=== PATIENT | female | born 1945 | race Caucasian/White ===

== ENCOUNTER 2023-02-21 19:56 | Inpatient (IN) | payer BC, OTHER ==
[~2023-02-21] VITALS: Ht 134.6 cm; Wt 52.2 kg
[2023-02-21 20:12] VITALS: BP 163/92; PULSE 130; RESP 18; TEMP 97.4; O2SAT 97
[2023-02-21] MEDS ORDERED: NACL 0.9% 1,000 ML IV ONE (20:40)
[2023-02-21] MEDS ORDERED: KETOROLAC 30 MG/ML VIAL IVP ONE (20:45)
[2023-02-21] MEDS ORDERED: DILTIAZEM 25 MG/5 ML VIAL IVP ONE (22:20)
[2023-02-21 23:24] LABS: BASOPHILS % (AUTO) 0.4 % (0.0-2.0); EOSINOPHILS % (AUTO) 0.3 % (0.0-4.0); HEMATOCRIT 32.6 % (36-48); HEMOGLOBIN 10.9 g/dL (12.0-16.0); LYMPHOCYTES # (AUTO) 0.6 K/uL (2.5-16.5); LYMPHOCYTES % (AUTO) 8.1 % (20.5-51.1); MEAN CORPUSCULAR HEMOGLOBIN 26 pg (27-31); MEAN CORPUSCULAR HGB CONC 34 g/dL (33-37); MEAN CORPUSCULAR VOLUME 78.4 fL (80-94); MONOCYTES # (AUTO) 0.5 K/uL (0.8-1.0); MONOCYTES % (AUTO) 7.2 % (1.7-9.3); NEUTROPHILS # (AUTO) 6.1 K/uL (1.8-7.7); PLATELET COUNT (AUTO) 123 K/uL (140-450); RED BLOOD CELL COUNT(AUTO) 4.16 MIL/uL (4.20-5.40); WHITE BLOOD COUNT (AUTO) 7.3 K/uL (4.8-10.8)
[2023-02-21 23:28] LABS: INR 1.05 (0.8-1.2)
[2023-02-21 23:32] LABS: ALANINE AMINOTRANSFERASE 21 U/L (12-78); ALBUMIN 3.7 g/dL (3.4-5.0); ALKALINE PHOSPHATASE 88 U/L (50-136); ANION GAP 16.2 (8-16); ASPARTATE AMINOTRANSFERASE 36 U/L (15-37); CALCIUM 8.9 mg/dL (8.5-10.1); CARBON DIOXIDE 26.2 mmol/L (21-32); CHLORIDE 104 mmol/L (98-107); CREATININE 0.6 mg/dL (0.6-1.3); GLUCOSE 184 mg/dL (74-106); MAGNESIUM 1.6 mg/dL (1.8-2.4); POTASSIUM 3.4 mmol/L (3.5-5.1); SODIUM SERUM 143 mmol/L (136-145); TOTAL BILIRUBIN 1.2 mg/dL (0.0-1.0); TOTAL PROTEIN, SERUM 7.1 g/dL (6.4-8.2); UREA NITROGEN, BLOOD 17 mg/dL (7-18)
[2023-02-21] MEDS ORDERED: MAG SULF 2000 MG/WATER PREMIX 50 ML IV ONE (23:45)
[2023-02-22] VITALS (8 sets, daily range): BP systolic 124–175; BP diastolic 69–96; PULSE 72–151; RESP 16–20; TEMP 97.9–99.3; O2SAT 95–98
[2023-02-22] MEDS ORDERED: METOPROLOL 5 MG/5 ML VIAL IVP ONE (00:15)
[2023-02-22] MEDS ORDERED: KCL 20 MEQ IN 100 mL PREMIX 100 ML IV ONE (00:20)
[2023-02-22] MEDS ORDERED: METO25TE2 PO (01:53)
[2023-02-22] MEDS ORDERED: SACU1TAB PO (01:53)
[2023-02-22] MEDS ORDERED: POTA10TA70 PO (01:53)
[2023-02-22] MEDS: hydrALAZINE 20 MG/ML VIAL IVP PRN ×2 (03:08→12:41)
[2023-02-22] MEDS ORDERED: HYDROcodone/APAP 10/325 MG 1 TAB TAB PO PRN (07:45)
[2023-02-22] MEDS: MORPHINE SULFATE 4 MG/ML SYR IVP PRN ×2 (08:50→15:55)
[2023-02-22] MEDS ORDERED: guaiFENesin DM 200/20 MG-10 ML 10 ML UDC PO PRN (09:25)
[2023-02-22] MEDS ORDERED: ZOLPIDEM 5 MG TAB PO PRN (09:25)
[2023-02-22] MEDS ORDERED: ACETAMINOPHEN 325 MG TAB PO PRN (09:25)
[2023-02-22] MEDS ORDERED: POTASSIUM CHLORIDE 10 MEQ TABER PO PRN (09:25)
[2023-02-22] MEDS ORDERED: HYDROcodone/APAP 7.5/325 MG 1 TAB PO PRN (09:25)
[2023-02-22] MEDS ORDERED: ONDANSETRON 4 MG/2 ML VIAL IM/IVP PRN (09:25)
[2023-02-22] MEDS ORDERED: DOCUSATE SODIUM 100 MG GELCAP PO PRN (09:25)
[2023-02-22] MEDS ORDERED: ONDANSETRON 4 MG/2 ML VIAL IVP PRN (12:30)
[2023-02-22] MEDS: NACL 0.9% 1,000 ML IV SCH (12:37)
[2023-02-22 15:07] LABS: CHOL/HDL RATIO 2.5 (1-4.5); FREE T4 (FREE THYROXINE) 1.31 ng/dL (0.76-1.46); MAGNESIUM 1.7 mg/dL (1.8-2.4); PHOSPHORUS 3.3 mg/dL (2.5-4.9); THYROID STIMULATING HORMONE 0.82 uIU/mL (0.34-3.74)
[2023-02-22] MEDS ORDERED: DILTIAZEM 25 MG/5 ML VIAL IVP SCH (15:51)
[2023-02-22] MEDS: METOPROLOL SUCCINATE 50 MG TABER PO SCH (16:01)
[2023-02-22] MEDS ORDERED: MAG SULF 2000 MG/WATER PREMIX 50 ML IV ONE (19:05)
[2023-02-22] MEDS ORDERED: METOPROLOL 25 MG TAB PO PRN (22:30)
[2023-02-23] VITALS (7 sets, daily range): BP systolic 121–140; BP diastolic 63–101; PULSE 75–111; RESP 16–20; TEMP 97.1–98.9; O2SAT 91–99
[2023-02-23] MEDS: NACL 0.9% 1,000 ML IV SCH ×2 (02:28→21:39)
[2023-02-23 05:32] LABS: BILIRUBIN,URINE 1+ (NEGATIVE); BLOOD, URINE NEGATIVE (NEGATIVE); COLOR,URINE YELLOW (YELLOW); LEUKOCYTE ESTERASE ,URINE NEGATIVE (NEGATIVE); NITRITE, URINE NEGATIVE (NEGATIVE); PROTEIN,URINE 2+ (NEGATIVE); UGLUCOSE TRACE (NEGATIVE)
[2023-02-23 06:00] LABS: APPEARANCE,URINE SLIGHTLY HAZY (CLEAR)
[2023-02-23 06:01] LABS: BACTERIA,URINE OCCASSIONAL /HPF (None Seen); ICTOTEST NEGATIVE (NEGATIVE); RBC,URINE 0-5 /HPF (0-5); WBC,URINE 0-5 /HPF (0-5)
[2023-02-23 06:02] LABS: HYALINE CASTS, URINE 0-10 /LPF (None Seen); MUCUS,URINE 1+ /LPF (None Seen); SQUAMOUS EPITHELIAL CELL,UR 4-10 (MOD) /LPF (0-3 (FEW))
[2023-02-23 06:36] LABS: BASOPHILS % (AUTO) 0.1 % (0.0-2.0); HEMATOCRIT 31.9 % (36-48); HEMOGLOBIN 10.4 g/dL (12.0-16.0); LYMPHOCYTES # (AUTO) 0.7 K/uL (2.5-16.5); LYMPHOCYTES % (AUTO) 7.8 % (20.5-51.1); MEAN CORPUSCULAR HEMOGLOBIN 26 pg (27-31); MEAN CORPUSCULAR HGB CONC 33 g/dL (33-37); MEAN CORPUSCULAR VOLUME 79.5 fL (80-94); MONOCYTES # (AUTO) 1.1 K/uL (0.8-1.0); MONOCYTES % (AUTO) 11.8 % (1.7-9.3); NEUTROPHILS # (AUTO) 7.3 K/uL (1.8-7.7); NEUTROPHILS % (AUTO) 80.3 % (42.2-75.2); PLATELET COUNT (AUTO) 149 K/uL (140-450); RED BLOOD CELL COUNT(AUTO) 4.02 MIL/uL (4.20-5.40); RED CELL DISTRIBUTION WIDTH 16.8 % (11.6-13.7); WHITE BLOOD COUNT (AUTO) 9.1 K/uL (4.8-10.8)
[2023-02-23 06:59] LABS: ANION GAP 12.6 (8-16); CARBON DIOXIDE 26.1 mmol/L (21-32); CHLORIDE 108 mmol/L (98-107); CREATININE 0.9 mg/dL (0.6-1.3); GLUCOSE 197 mg/dL (74-106); POTASSIUM 4.7 mmol/L (3.5-5.1); SODIUM SERUM 142 mmol/L (136-145); UREA NITROGEN, BLOOD 22 mg/dL (7-18)
[2023-02-23] MEDS: METOPROLOL SUCCINATE 50 MG TABER PO SCH (08:37)
[2023-02-23] MEDS: PANTOPRAZOLE 40 MG TABEC PO SCH (08:37)
[2023-02-23] MEDS ORDERED: METOPROLOL SUCCINATE 50 MG TABER PO SCH (15:18)
[2023-02-23] MEDS: MORPHINE SULFATE 4 MG/ML SYR IVP PRN (15:45)
[2023-02-24] VITALS (10 sets, daily range): BP systolic 121–183; BP diastolic 66–110; PULSE 69–121; RESP 18–20; TEMP 96.6–97.9; O2SAT 92–99
[2023-02-24] MEDS: MORPHINE SULFATE 4 MG/ML SYR IVP PRN ×2 (01:14→19:24)
[2023-02-24 07:26] LABS: BASOPHILS % (AUTO) 0.2 % (0.0-2.0); EOSINOPHILS % (AUTO) 0.1 % (0.0-4.0); HEMATOCRIT 35.2 % (36-48); HEMOGLOBIN 11.3 g/dL (12.0-16.0); LYMPHOCYTES % (AUTO) 9.5 % (20.5-51.1); MEAN CORPUSCULAR HEMOGLOBIN 26 pg (27-31); MEAN CORPUSCULAR HGB CONC 32 g/dL (33-37); MEAN CORPUSCULAR VOLUME 80.7 fL (80-94); MONOCYTES % (AUTO) 9.1 % (1.7-9.3); NEUTROPHILS # (AUTO) 8.8 K/uL (1.8-7.7); NEUTROPHILS % (AUTO) 81.1 % (42.2-75.2); PLATELET COUNT (AUTO) 191 K/uL (140-450); RED BLOOD CELL COUNT(AUTO) 4.36 MIL/uL (4.20-5.40); RED CELL DISTRIBUTION WIDTH 17.5 % (11.6-13.7); WHITE BLOOD COUNT (AUTO) 10.8 K/uL (4.8-10.8)
[2023-02-24 07:28] LABS: ANION GAP 11.7 (8-16); CALCIUM 8.9 mg/dL (8.5-10.1); CARBON DIOXIDE 26.6 mmol/L (21-32); CHLORIDE 106 mmol/L (98-107); GLUCOSE 128 mg/dL (74-106); SODIUM SERUM 139 mmol/L (136-145); UREA NITROGEN, BLOOD 36 mg/dL (7-18)
[2023-02-24 07:30] LABS: POTASSIUM 5.3 mmol/L (3.5-5.1)
[2023-02-24] MEDS: PANTOPRAZOLE 40 MG TABEC PO SCH (08:14)
[2023-02-24] MEDS ORDERED: METOPROLOL SUCCINATE 50 MG TABER PO SCH (09:00)
[2023-02-24 09:07] LABS: T4 (THYROXINE) 8.5 ug/dL (4.5-12.0)
[2023-02-24] MEDS ORDERED: DIGOXIN 0.25 MG/ML AMP IV SCH ×2 (12:31→18:00)
[2023-02-24] MEDS: NACL 0.9% 1,000 ML IV SCH (12:32)
[2023-02-24] MEDS: METOPROLOL 50 MG TAB PO SCH ×2 (12:45→20:09)
[2023-02-24] MEDS: hydrALAZINE 20 MG/ML VIAL IVP PRN (14:54)
[2023-02-25] VITALS (8 sets, daily range): BP systolic 122–160; BP diastolic 75–89; PULSE 63–82; RESP 18–24; TEMP 97.6–98.2; O2SAT 94–99
[2023-02-25] MEDS ORDERED: DIGOXIN 0.25 MG/ML AMP IV SCH
[2023-02-25] MEDS: MORPHINE SULFATE 4 MG/ML SYR IVP PRN ×2 (02:32→12:03)
[2023-02-25] MEDS: NACL 0.9% 1,000 ML IV SCH (04:22)
[2023-02-25] MEDS: METOPROLOL 50 MG TAB PO SCH (04:22)
[2023-02-25 06:08] LABS: HEMOGLOBIN A1C 5.3 % (4.8-5.6)
[2023-02-25 06:20] LABS: BASOPHILS % (AUTO) 0.3 % (0.0-2.0); EOSINOPHILS % (AUTO) 0.2 % (0.0-4.0); HEMATOCRIT 32.9 % (36-48); HEMOGLOBIN 10.7 g/dL (12.0-16.0); LYMPHOCYTES # (AUTO) 0.5 K/uL (2.5-16.5); LYMPHOCYTES % (AUTO) 5.6 % (20.5-51.1); MEAN CORPUSCULAR HEMOGLOBIN 26 pg (27-31); MEAN CORPUSCULAR HGB CONC 33 g/dL (33-37); MEAN CORPUSCULAR VOLUME 79.6 fL (80-94); MONOCYTES # (AUTO) 0.6 K/uL (0.8-1.0); MONOCYTES % (AUTO) 6.2 % (1.7-9.3); NEUTROPHILS # (AUTO) 7.8 K/uL (1.8-7.7); NEUTROPHILS % (AUTO) 87.7 % (42.2-75.2); PLATELET COUNT (AUTO) 146 K/uL (140-450); RED BLOOD CELL COUNT(AUTO) 4.13 MIL/uL (4.20-5.40); RED CELL DISTRIBUTION WIDTH 16.5 % (11.6-13.7); WHITE BLOOD COUNT (AUTO) 8.9 K/uL (4.8-10.8)
[2023-02-25 06:47] LABS: ANION GAP 12.7 (8-16); CALCIUM 8.4 mg/dL (8.5-10.1); CARBON DIOXIDE 27.3 mmol/L (21-32); CHLORIDE 107 mmol/L (98-107); CREATININE 0.6 mg/dL (0.6-1.3); GLUCOSE 111 mg/dL (74-106); SODIUM SERUM 143 mmol/L (136-145); UREA NITROGEN, BLOOD 20 mg/dL (7-18)
[2023-02-25] MEDS ORDERED: ALBUTEROL SULFATE/IPRATROPIU 3 ML SOL IH PRN (08:05)
[2023-02-25] MEDS ORDERED: METO25TA PO (08:20)
[2023-02-25] MEDS ORDERED: TRAM50TA3 PO (08:20)
[2023-02-25] MEDS ORDERED: ASPI-1856 PO (08:20)
[2023-02-25] MEDS ORDERED: LEVO-481 PO (08:22)
[2023-02-25] MEDS ORDERED: ALBU0.0912 IH (08:22)
[2023-02-25] MEDS ORDERED: ECOTRIN 81 MG TABEC PO SCH (09:00)
[2023-02-25] MEDS: PANTOPRAZOLE 40 MG TABEC PO SCH (09:09)
[2023-02-25] MEDS: hydrALAZINE 20 MG/ML VIAL IVP PRN (11:23)
== END 2023-02-25 13:00 | disposition home or self-care (01) | DRG 871 ==
LOC: MED 19:56 → MTU 02-22 00:33
PROVIDERS: ADMIT Family Medicine; ATTEND Family Medicine
PROC: 2W3LX1Z Immobilization of Right Lower Extremity using Splint (ICD-10-PCS; principal; 2023-02-21)
DX: A41.9 Sepsis, unspecified organism (principal); J18.9 Pneumonia, unspecified organism; J69.0 Pneumonitis due to inhalation of food and vomit; I48.20 Chronic atrial fibrillation, unspecified; D68.9 Coagulation defect, unspecified; S82.841A Displaced bimalleolar fracture of right lower leg, initial encounter for closed fracture; I10 Essential (primary) hypertension; W01.0XXA Fall on same level from slipping, tripping and stumbling without subsequent striking against object, initial encounter; I48.91 Unspecified atrial fibrillation; D63.8 Anemia in other chronic diseases classified elsewhere; Z89.612 Acquired absence of left leg above knee; Z79.01 Long term (current) use of anticoagulants; Z79.899 Other long term (current) drug therapy; Y93.89 Activity, other specified; Y92.89 Other specified places as the place of occurrence of the external cause; Y99.8 Other external cause status
CPT/HCPCS: 36415; 70450; 71045; 72125; 73590; 73610; 73630; 80048; 80053; 81001; 82150; 83036; 83690; 83735; 83880; 84100; 84436; 84439; 84443; 84479; 84484; 85025; 85610; 86886; 86900; 86901; 87081; 93005; 94640; 96361; 96365; 96366; 96375; 99291; J0360; J0696; J1160; J1885; J2270; J2405; J3475; J3480; J3490; J7060; Q0092

== ENCOUNTER 2023-03-03 15:02 | Inpatient (IN) | payer BC, OTHER ==
[~2023-03-03] VITALS: Ht 139.7 cm; Wt 76.2 kg
[~2023-03-03 15:02] MED LIST: ALBU0.0912 IH; ASPI-1856 PO; LEVO-481 PO; METO25TA PO; POTA10TA70 PO; SACU1TAB PO
[2023-03-03 15:42] VITALS: BP 192/115; PULSE 166; RESP 34; TEMP 101.5; O2SAT 96
[2023-03-03] MEDS ORDERED: NACL 0.9% 500 ML IV ONE (16:00)
[2023-03-03] MEDS ORDERED: METOPROLOL 5 MG/5 ML VIAL IVP ONE (16:05)
[2023-03-03] MEDS ORDERED: ACETAMINOPHEN EXTRA STRENGTH 500 MG TAB PO ONE (16:05)
[2023-03-03 16:19] LABS: BASOPHILS % (AUTO) 0.1 % (0.0-2.0); HEMATOCRIT 35.4 % (36-48); HEMOGLOBIN 11.6 g/dL (12.0-16.0); LYMPHOCYTES # (AUTO) 0.8 K/uL (2.5-16.5); LYMPHOCYTES % (AUTO) 6.3 % (20.5-51.1); MEAN CORPUSCULAR HEMOGLOBIN 26 pg (27-31); MEAN CORPUSCULAR HGB CONC 33 g/dL (33-37); MEAN CORPUSCULAR VOLUME 77.5 fL (80-94); MONOCYTES # (AUTO) 1.1 K/uL (0.8-1.0); MONOCYTES % (AUTO) 8.9 % (1.7-9.3); NEUTROPHILS # (AUTO) 10.3 K/uL (1.8-7.7); NEUTROPHILS % (AUTO) 84.7 % (42.2-75.2); PLATELET COUNT (AUTO) 169 K/uL (140-450); RED BLOOD CELL COUNT(AUTO) 4.57 MIL/uL (4.20-5.40); WHITE BLOOD COUNT (AUTO) 12.2 K/uL (4.8-10.8)
[2023-03-03 16:34] LABS: LACTIC ACID 1.2 mmol/L (0.4-2.0)
[2023-03-03 16:38] LABS: ALANINE AMINOTRANSFERASE 21 U/L (12-78); ALBUMIN 3.5 g/dL (3.4-5.0); ALKALINE PHOSPHATASE 80 U/L (50-136); ANION GAP 14.9 (8-16); ASPARTATE AMINOTRANSFERASE 36 U/L (15-37); CALCIUM 8.9 mg/dL (8.5-10.1); CARBON DIOXIDE 29.9 mmol/L (21-32); CHLORIDE 99 mmol/L (98-107); CREATININE 0.6 mg/dL (0.6-1.3); GLUCOSE 128 mg/dL (74-106); INR 1.09 (0.8-1.2); LIPASE 25 U/L (16-77); MAGNESIUM 1.6 mg/dL (1.8-2.4); PARTIAL THROMBOPLASTIN TIME 26.3 secs (22-35.6); PHOSPHORUS 2.5 mg/dL (2.5-4.9); POTASSIUM 3.8 mmol/L (3.5-5.1); PROTHROMBIN TIME 11.4 secs (10.8-13.4); SODIUM SERUM 140 mmol/L (136-145); TOTAL BILIRUBIN 0.8 mg/dL (0.0-1.0); TOTAL PROTEIN, SERUM 7.2 g/dL (6.4-8.2); UREA NITROGEN, BLOOD 15 mg/dL (7-18)
[2023-03-03] MEDS ORDERED: AMPICILLIN/SULBACTAM 3 GM in NACL 0.9% 100 ML IV ONE (17:20)
[2023-03-03] MEDS ORDERED: AMPICILLIN/SULBACTAM 3 GM VIAL ONE (17:24)
[2023-03-03 17:50] LABS: FLU A ANTIGEN negative (NEGATIVE); FLU B ANTIGEN NEGATIVE (NEGATIVE)
[2023-03-03] MEDS ORDERED: ONDANSETRON 4 MG/2 ML VIAL IVP PRN (19:50)
[2023-03-03 21:54] VITALS: PULSE 104; RESP 32; O2SAT 100
[2023-03-03] MEDS: ALBUTEROL 0.083% 2.5 MG/3 ML NEBU INH PRN (21:54)
[2023-03-03] MEDS: APIXABAN 2.5 MG TAB PO SCH (22:13)
[2023-03-03] MEDS: METOPROLOL 50 MG TAB PO SCH (22:13)
[2023-03-03] MEDS: lisinopriL 20 MG TAB PO SCH (22:14)
[2023-03-03] MEDS: SPIRONOLACTONE 25 MG TAB PO SCH (22:22)
[2023-03-03 22:39] VITALS: O2SAT 100
[2023-03-04] VITALS (11 sets, daily range): BP systolic 155–185; BP diastolic 79–96; PULSE 71–120; RESP 18–29; TEMP 99.3–99.7; O2SAT 92–100
[2023-03-04] MEDS: HYDROcodone/APAP 5/325 MG 1 TAB TAB PO PRN ×2 (04:24→13:12)
[2023-03-04] MEDS: ALBUTEROL 0.083% 2.5 MG/3 ML NEBU INH PRN (04:24)
[2023-03-04 06:41] LABS: BASOPHILS % (AUTO) 0.2 % (0.0-2.0); EOSINOPHILS % (AUTO) 0.2 % (0.0-4.0); HEMATOCRIT 32.5 % (36-48); HEMOGLOBIN 10.7 g/dL (12.0-16.0); LYMPHOCYTES # (AUTO) 0.7 K/uL (2.5-16.5); LYMPHOCYTES % (AUTO) 8.8 % (20.5-51.1); MEAN CORPUSCULAR HEMOGLOBIN 26 pg (27-31); MEAN CORPUSCULAR HGB CONC 33 g/dL (33-37); MEAN CORPUSCULAR VOLUME 77.3 fL (80-94); MONOCYTES # (AUTO) 0.7 K/uL (0.8-1.0); MONOCYTES % (AUTO) 9.4 % (1.7-9.3); NEUTROPHILS # (AUTO) 6.2 K/uL (1.8-7.7); NEUTROPHILS % (AUTO) 81.4 % (42.2-75.2); PLATELET COUNT (AUTO) 139 K/uL (140-450); RED CELL DISTRIBUTION WIDTH 16.6 % (11.6-13.7); WHITE BLOOD COUNT (AUTO) 7.6 K/uL (4.8-10.8)
[2023-03-04 06:54] LABS: ANION GAP 11.6 (8-16); CALCIUM 8.3 mg/dL (8.5-10.1); CARBON DIOXIDE 31.4 mmol/L (21-32); CHLORIDE 103 mmol/L (98-107); CREATININE 0.6 mg/dL (0.6-1.3); GLUCOSE 93 mg/dL (74-106); SODIUM SERUM 143 mmol/L (136-145); UREA NITROGEN, BLOOD 12 mg/dL (7-18)
[2023-03-04] MEDS ORDERED: POTASSIUM CHLORIDE 10 MEQ TABER PO SCH (09:00)
[2023-03-04] MEDS: SPIRONOLACTONE 25 MG TAB PO SCH ×2 (09:29→21:08)
[2023-03-04] MEDS: FUROSEMIDE 40 MG TAB PO SCH (09:30)
[2023-03-04] MEDS: lisinopriL 20 MG TAB PO SCH ×2 (09:30→21:10)
[2023-03-04] MEDS: METOPROLOL 50 MG TAB PO SCH ×2 (09:30→21:09)
[2023-03-04] MEDS: APIXABAN 2.5 MG TAB PO SCH ×2 (09:39→21:07)
[2023-03-04] MEDS: MORPHINE SULFATE 2 MG/ML SYR IVP PRN (13:54)
[2023-03-04 19:31] LABS: APPEARANCE,URINE CLEAR (CLEAR); BILIRUBIN,URINE NEGATIVE (NEGATIVE); BLOOD, URINE NEGATIVE (NEGATIVE); COLOR,URINE YELLOW (YELLOW); LEUKOCYTE ESTERASE ,URINE TRACE (NEGATIVE); NITRITE, URINE NEGATIVE (NEGATIVE); PROTEIN,URINE 2+ (NEGATIVE); UGLUCOSE NEGATIVE (NEGATIVE); UROBILINOGEN,URINE 0.2 EU/dL (0.2 - 1)
[2023-03-04 19:42] LABS: BACTERIA,URINE 10-30 (MOD) /HPF (None Seen); RBC,URINE 0-5 /HPF (0-5); SQUAMOUS EPITHELIAL CELL,UR 0-3 (FEW) /LPF (0-3 (FEW)); YEAST,URINE Few /HPF (None Seen)
[2023-03-04 19:43] LABS: AMPHETAMINE, URINE NEGATIVE ng/ml (NEG <=1000); BARBITURATE, URINE NEGATIVE ng/ml (NEG <=200); BENZODIAZEPINE, URINE NEGATIVE ng/mL (NEG <=200); CANNABINOID, URINE NEGATIVE ng/mL (NEG <=50); COCAINE, URINE NEGATIVE ng/mL (NEG <=300); OPIATE, URINE POSITIVE ng/mL (NEG <=2000); PHENCYCLIDINE SCREEN,URINE NEGATIVE ng/mL (NEG <=25)
[2023-03-05] VITALS (17 sets, daily range): BP systolic 121–207; BP diastolic 47–126; PULSE 68–110; RESP 12–29; TEMP 96.6–99.5; O2SAT 95–100
[2023-03-05 06:59] LABS: BASOPHILS % (AUTO) 0.1 % (0.0-2.0); EOSINOPHILS % (AUTO) 0.5 % (0.0-4.0); HEMOGLOBIN 10.8 g/dL (12.0-16.0); LYMPHOCYTES # (AUTO) 0.9 K/uL (2.5-16.5); LYMPHOCYTES % (AUTO) 14.1 % (20.5-51.1); MEAN CORPUSCULAR HEMOGLOBIN 25 pg (27-31); MEAN CORPUSCULAR HGB CONC 33 g/dL (33-37); MEAN CORPUSCULAR VOLUME 77.5 fL (80-94); MONOCYTES # (AUTO) 0.7 K/uL (0.8-1.0); MONOCYTES % (AUTO) 11.6 % (1.7-9.3); NEUTROPHILS # (AUTO) 4.6 K/uL (1.8-7.7); NEUTROPHILS % (AUTO) 73.7 % (42.2-75.2); PLATELET COUNT (AUTO) 142 K/uL (140-450); RED BLOOD CELL COUNT(AUTO) 4.26 MIL/uL (4.20-5.40); RED CELL DISTRIBUTION WIDTH 16.8 % (11.6-13.7); WHITE BLOOD COUNT (AUTO) 6.3 K/uL (4.8-10.8)
[2023-03-05 07:12] LABS: ANION GAP 6.5 (8-16); CALCIUM 8.6 mg/dL (8.5-10.1); CARBON DIOXIDE 35.2 mmol/L (21-32); CHLORIDE 102 mmol/L (98-107); CREATININE 0.5 mg/dL (0.6-1.3); GLUCOSE 82 mg/dL (74-106); POTASSIUM 3.7 mmol/L (3.5-5.1); SODIUM SERUM 140 mmol/L (136-145); UREA NITROGEN, BLOOD 13 mg/dL (7-18)
[2023-03-05] MEDS: ALBUTEROL 0.083% 2.5 MG/3 ML NEBU INH PRN (08:43)
[2023-03-05] MEDS ORDERED: METOPROLOL 5 MG/5 ML VIAL ONE (09:10)
[2023-03-05] MEDS ORDERED: METOPROLOL 5 MG/5 ML VIAL IV SCH (09:10)
[2023-03-05] MEDS: APIXABAN 2.5 MG TAB PO SCH ×2 (09:17→21:02)
[2023-03-05] MEDS: SPIRONOLACTONE 25 MG TAB PO SCH ×2 (09:18→20:27)
[2023-03-05] MEDS: lisinopriL 20 MG TAB PO SCH ×2 (09:18→20:27)
[2023-03-05] MEDS: FUROSEMIDE 40 MG TAB PO SCH (09:19)
[2023-03-05] MEDS ORDERED: AMIODARONE 150 MG in DEXTROSE 5% 100 ML IV SCH (09:20)
[2023-03-05] MEDS: METOPROLOL 50 MG TAB PO SCH ×3 (09:25→20:28)
[2023-03-05] MEDS ORDERED: AMIODARONE 450 MG in DEXTROSE 5% 250 ML IV SCH (09:30)
[2023-03-05] MEDS ORDERED: remdesivir COMMUNICATION ORDER 1 EA MISC MC PRN (15:05)
[2023-03-05] MEDS ORDERED: remdesivir CLINICAL MONITORING 1 EA MISC MC PRN (15:25)
[2023-03-05 15:32] LABS: ALBUMIN 2.9 g/dL (3.4-5.0); BILIRUBIN,DIRECT 0.2 mg/dL (0.0-0.3); TOTAL BILIRUBIN 0.7 mg/dL (0.0-1.0); TOTAL PROTEIN, SERUM 6.2 g/dL (6.4-8.2)
[2023-03-05] MEDS ORDERED: REMDESIVIR. 200 MG in NACL 0.9% 100 ML IV SCH (16:00)
[2023-03-05] MEDS ORDERED: IPRATROPIUM 0.02% 0.5 MG/2.5 ML NEBU INH PRN (18:20)
[2023-03-05] MEDS ORDERED: LEVALBUTEROL 1.25 MG/0.5 ML NEBU INH PRN (18:20)
[2023-03-05] MEDS ORDERED: LEVOFLOXACIN 750 MG/D5W PREMIX 150 ML IV SCH (22:15)
[2023-03-05] MEDS: LEVOFLOXACIN 750 MG/D5W PREMIX 150 ML IV SCH (22:56)
[2023-03-06] VITALS (18 sets, daily range): BP systolic 127–165; BP diastolic 67–107; PULSE 70–95; RESP 17–28; TEMP 97.2–98.4; O2SAT 98–100
[2023-03-06] MEDS: METOPROLOL 50 MG TAB PO SCH ×3 (04:15→21:10)
[2023-03-06 05:54] LABS: BASOPHILS % (AUTO) 0.1 % (0.0-2.0); EOSINOPHILS % (AUTO) 0.5 % (0.0-4.0); HEMOGLOBIN 11.6 g/dL (12.0-16.0); LYMPHOCYTES # (AUTO) 0.6 K/uL (2.5-16.5); LYMPHOCYTES % (AUTO) 10.8 % (20.5-51.1); MEAN CORPUSCULAR HEMOGLOBIN 25 pg (27-31); MEAN CORPUSCULAR HGB CONC 32 g/dL (33-37); MONOCYTES # (AUTO) 0.6 K/uL (0.8-1.0); MONOCYTES % (AUTO) 9.7 % (1.7-9.3); NEUTROPHILS # (AUTO) 4.6 K/uL (1.8-7.7); NEUTROPHILS % (AUTO) 78.9 % (42.2-75.2); PLATELET COUNT (AUTO) 126 K/uL (140-450); RED BLOOD CELL COUNT(AUTO) 4.62 MIL/uL (4.20-5.40); RED CELL DISTRIBUTION WIDTH 17.1 % (11.6-13.7); WHITE BLOOD COUNT (AUTO) 5.8 K/uL (4.8-10.8)
[2023-03-06 06:15] LABS: ALANINE AMINOTRANSFERASE 18 U/L (12-78); ALBUMIN 2.6 g/dL (3.4-5.0); ALKALINE PHOSPHATASE 65 U/L (50-136); ANION GAP 7.9 (8-16); ASPARTATE AMINOTRANSFERASE 33 U/L (15-37); CALCIUM 8.3 mg/dL (8.5-10.1); CARBON DIOXIDE 33.9 mmol/L (21-32); CHLORIDE 100 mmol/L (98-107); CREATININE 0.4 mg/dL (0.6-1.3); GLUCOSE 90 mg/dL (74-106); POTASSIUM 3.8 mmol/L (3.5-5.1); SODIUM SERUM 138 mmol/L (136-145); TOTAL BILIRUBIN 0.6 mg/dL (0.0-1.0); TOTAL PROTEIN, SERUM 6.1 g/dL (6.4-8.2); UREA NITROGEN, BLOOD 11 mg/dL (7-18)
[2023-03-06 07:39] LABS: ALBUMIN 2.5 g/dL (3.4-5.0); BILIRUBIN,DIRECT 0.1 mg/dL (0.0-0.3); TOTAL BILIRUBIN 0.6 mg/dL (0.0-1.0); TOTAL PROTEIN, SERUM 6.1 g/dL (6.4-8.2)
[2023-03-06] MEDS: lisinopriL 20 MG TAB PO SCH ×2 (08:08→21:09)
[2023-03-06] MEDS: SPIRONOLACTONE 25 MG TAB PO SCH ×2 (08:08→21:07)
[2023-03-06] MEDS: FUROSEMIDE 40 MG TAB PO SCH (08:08)
[2023-03-06] MEDS: APIXABAN 2.5 MG TAB PO SCH ×2 (08:10→21:17)
[2023-03-06] MEDS: DEXAMETHASONE 10 MG/ML VIAL IVP SCH (08:11)
[2023-03-06] MEDS: REMDESIVIR. 100 MG in NACL 0.9% 100 ML IV SCH (15:25)
[2023-03-07] VITALS (11 sets, daily range): BP systolic 128–174; BP diastolic 72–125; PULSE 63–93; RESP 16–20; TEMP 97–98.2; O2SAT 93–96
[2023-03-07] MEDS: METOPROLOL 50 MG TAB PO SCH ×3 (05:03→21:58)
[2023-03-07 06:46] LABS: BASOPHILS % (AUTO) 0.1 % (0.0-2.0); EOSINOPHILS % (AUTO) 0.1 % (0.0-4.0); HEMATOCRIT 35.4 % (36-48); HEMOGLOBIN 11.6 g/dL (12.0-16.0); LYMPHOCYTES # (AUTO) 0.6 K/uL (2.5-16.5); LYMPHOCYTES % (AUTO) 12.2 % (20.5-51.1); MEAN CORPUSCULAR HEMOGLOBIN 25 pg (27-31); MEAN CORPUSCULAR HGB CONC 33 g/dL (33-37); MEAN CORPUSCULAR VOLUME 76.5 fL (80-94); MONOCYTES # (AUTO) 0.7 K/uL (0.8-1.0); MONOCYTES % (AUTO) 13.9 % (1.7-9.3); NEUTROPHILS # (AUTO) 3.7 K/uL (1.8-7.7); NEUTROPHILS % (AUTO) 73.7 % (42.2-75.2); PLATELET COUNT (AUTO) 251 K/uL (140-450); RED BLOOD CELL COUNT(AUTO) 4.63 MIL/uL (4.20-5.40); RED CELL DISTRIBUTION WIDTH 16.4 % (11.6-13.7)
[2023-03-07 07:10] LABS: ALANINE AMINOTRANSFERASE 19 U/L (12-78); ALBUMIN 2.5 g/dL (3.4-5.0); ALKALINE PHOSPHATASE 68 U/L (50-136); ANION GAP 8.5 (8-16); ASPARTATE AMINOTRANSFERASE 24 U/L (15-37); CALCIUM 8.5 mg/dL (8.5-10.1); CARBON DIOXIDE 34.4 mmol/L (21-32); CHLORIDE 98 mmol/L (98-107); CREATININE 0.5 mg/dL (0.6-1.3); GLUCOSE 103 mg/dL (74-106); POTASSIUM 3.9 mmol/L (3.5-5.1); SODIUM SERUM 137 mmol/L (136-145); TOTAL BILIRUBIN 0.6 mg/dL (0.0-1.0); UREA NITROGEN, BLOOD 15 mg/dL (7-18)
[2023-03-07] MEDS: POLYETHYLENE GLYCOL 17 GM/PKT PO SCH (08:58)
[2023-03-07] MEDS: DEXAMETHASONE 10 MG/ML VIAL IVP SCH (08:59)
[2023-03-07] MEDS: FLUCONAZOLE 100 MG TAB PO SCH (09:00)
[2023-03-07] MEDS: APIXABAN 2.5 MG TAB PO SCH ×2 (09:03→22:00)
[2023-03-07] MEDS: lisinopriL 20 MG TAB PO SCH ×2 (09:04→21:58)
[2023-03-07] MEDS: DOCUSATE SODIUM 100 MG GELCAP PO SCH ×2 (09:05→21:58)
[2023-03-07] MEDS: FUROSEMIDE 40 MG TAB PO SCH (09:05)
[2023-03-07] MEDS: SPIRONOLACTONE 25 MG TAB PO SCH ×2 (09:06→21:59)
[2023-03-07] MEDS ORDERED: SODIUM PHOSPHATE 118 ML ENEM RC SCH (14:00)
[2023-03-07] MEDS ORDERED: DIGOXIN 0.25 MG/ML AMP IV SCH ×2 (16:00→22:00)
[2023-03-07] MEDS: REMDESIVIR. 100 MG in NACL 0.9% 100 ML IV SCH (18:08)
[2023-03-07] MEDS: LEVOFLOXACIN 750 MG/D5W PREMIX 150 ML IV SCH (21:59)
[2023-03-08] VITALS (8 sets, daily range): BP systolic 102–181; BP diastolic 61–86; PULSE 55–68; RESP 17–19; TEMP 97.1–98; O2SAT 94–100
[2023-03-08] MEDS: MORPHINE SULFATE 2 MG/ML SYR IVP PRN (02:53)
[2023-03-08] MEDS ORDERED: DIGOXIN 0.25 MG/ML AMP IV SCH (04:00)
[2023-03-08 06:31] LABS: BASOPHILS % (AUTO) 0.1 % (0.0-2.0); HEMATOCRIT 36.5 % (36-48); LYMPHOCYTES # (AUTO) 0.7 K/uL (2.5-16.5); LYMPHOCYTES % (AUTO) 11.1 % (20.5-51.1); MEAN CORPUSCULAR HEMOGLOBIN 25 pg (27-31); MEAN CORPUSCULAR HGB CONC 33 g/dL (33-37); MEAN CORPUSCULAR VOLUME 76.1 fL (80-94); MONOCYTES # (AUTO) 0.6 K/uL (0.8-1.0); MONOCYTES % (AUTO) 9.7 % (1.7-9.3); NEUTROPHILS # (AUTO) 5.2 K/uL (1.8-7.7); NEUTROPHILS % (AUTO) 79.1 % (42.2-75.2); PLATELET COUNT (AUTO) 264 K/uL (140-450); RED CELL DISTRIBUTION WIDTH 16.5 % (11.6-13.7); WHITE BLOOD COUNT (AUTO) 6.6 K/uL (4.8-10.8)
[2023-03-08 06:47] LABS: ALANINE AMINOTRANSFERASE 20 U/L (12-78); ALBUMIN 2.7 g/dL (3.4-5.0); ALKALINE PHOSPHATASE 74 U/L (50-136); ASPARTATE AMINOTRANSFERASE 26 U/L (15-37); CALCIUM 8.5 mg/dL (8.5-10.1); CARBON DIOXIDE 31.9 mmol/L (21-32); CHLORIDE 97 mmol/L (98-107); CREATININE 0.6 mg/dL (0.6-1.3); GLUCOSE 112 mg/dL (74-106); POTASSIUM 3.9 mmol/L (3.5-5.1); SODIUM SERUM 136 mmol/L (136-145); TOTAL BILIRUBIN 0.8 mg/dL (0.0-1.0); TOTAL PROTEIN, SERUM 6.3 g/dL (6.4-8.2); UREA NITROGEN, BLOOD 17 mg/dL (7-18)
[2023-03-08] MEDS: lisinopriL 20 MG TAB PO SCH ×2 (11:30→20:42)
[2023-03-08] MEDS: FUROSEMIDE 40 MG TAB PO SCH (11:30)
[2023-03-08] MEDS: FLUCONAZOLE 100 MG TAB PO SCH (11:30)
[2023-03-08] MEDS: DEXAMETHASONE 10 MG/ML VIAL IVP SCH (11:31)
[2023-03-08] MEDS: METOPROLOL 50 MG TAB PO SCH ×2 (11:31→20:41)
[2023-03-08] MEDS: SPIRONOLACTONE 25 MG TAB PO SCH ×2 (11:31→20:41)
[2023-03-08] MEDS: DOCUSATE SODIUM 100 MG GELCAP PO SCH ×2 (11:32→20:41)
[2023-03-08] MEDS: POLYETHYLENE GLYCOL 17 GM/PKT PO SCH (11:32)
[2023-03-08] MEDS: APIXABAN 2.5 MG TAB PO SCH ×2 (11:42→20:43)
[2023-03-08] MEDS: REMDESIVIR. 100 MG in NACL 0.9% 100 ML IV SCH (16:59)
[2023-03-09] VITALS (9 sets, daily range): BP systolic 113–145; BP diastolic 64–80; PULSE 51–96; RESP 18–20; TEMP 96.9–98.6; O2SAT 96–99
[2023-03-09] MEDS: HYDROcodone/APAP 5/325 MG 1 TAB TAB PO PRN ×2 (02:02→23:46)
[2023-03-09 07:02] LABS: BASOPHILS % (AUTO) 0.1 % (0.0-2.0); HEMOGLOBIN 11.6 g/dL (12.0-16.0); LYMPHOCYTES # (AUTO) 0.5 K/uL (2.5-16.5); LYMPHOCYTES % (AUTO) 9.8 % (20.5-51.1); MEAN CORPUSCULAR HEMOGLOBIN 25 pg (27-31); MEAN CORPUSCULAR HGB CONC 33 g/dL (33-37); MEAN CORPUSCULAR VOLUME 76.3 fL (80-94); MONOCYTES # (AUTO) 0.3 K/uL (0.8-1.0); MONOCYTES % (AUTO) 7.1 % (1.7-9.3); NEUTROPHILS # (AUTO) 3.9 K/uL (1.8-7.7); PLATELET COUNT (AUTO) 270 K/uL (140-450); RED BLOOD CELL COUNT(AUTO) 4.59 MIL/uL (4.20-5.40); RED CELL DISTRIBUTION WIDTH 16.5 % (11.6-13.7); WHITE BLOOD COUNT (AUTO) 4.7 K/uL (4.8-10.8)
[2023-03-09 07:19] LABS: ALANINE AMINOTRANSFERASE 17 U/L (12-78); ALBUMIN 2.7 g/dL (3.4-5.0); ALKALINE PHOSPHATASE 71 U/L (50-136); ANION GAP 7.2 (8-16); ASPARTATE AMINOTRANSFERASE 22 U/L (15-37); CALCIUM 8.5 mg/dL (8.5-10.1); CARBON DIOXIDE 33.9 mmol/L (21-32); CHLORIDE 97 mmol/L (98-107); CREATININE 0.7 mg/dL (0.6-1.3); GLUCOSE 126 mg/dL (74-106); POTASSIUM 4.1 mmol/L (3.5-5.1); SODIUM SERUM 134 mmol/L (136-145); TOTAL BILIRUBIN 0.7 mg/dL (0.0-1.0); UREA NITROGEN, BLOOD 19 mg/dL (7-18)
[2023-03-09] MEDS: SPIRONOLACTONE 25 MG TAB PO SCH ×2 (09:00→21:56)
[2023-03-09] MEDS: METOPROLOL 50 MG TAB PO SCH ×2 (09:00→21:56)
[2023-03-09] MEDS: FUROSEMIDE 40 MG TAB PO SCH (10:10)
[2023-03-09] MEDS: DEXAMETHASONE 10 MG/ML VIAL IVP SCH (10:10)
[2023-03-09] MEDS: FLUCONAZOLE 100 MG TAB PO SCH (10:11)
[2023-03-09] MEDS: DOCUSATE SODIUM 100 MG GELCAP PO SCH ×2 (10:11→20:44)
[2023-03-09] MEDS: lisinopriL 20 MG TAB PO SCH ×2 (10:11→21:57)
[2023-03-09] MEDS: APIXABAN 2.5 MG TAB PO SCH ×2 (10:17→20:52)
[2023-03-09] MEDS: POLYETHYLENE GLYCOL 17 GM/PKT PO SCH (10:18)
[2023-03-09] MEDS: REMDESIVIR. 100 MG in NACL 0.9% 100 ML IV SCH (17:15)
[2023-03-09] MEDS: LEVOFLOXACIN 750 MG/D5W PREMIX 150 ML IV SCH (21:58)
[2023-03-10] VITALS (12 sets, daily range): BP systolic 131–162; BP diastolic 70–88; PULSE 55–89; RESP 15–20; TEMP 97.2–98.6; O2SAT 93–100
[2023-03-10 06:28] LABS: HEMATOCRIT 38.8 % (36-48); HEMOGLOBIN 12.8 g/dL (12.0-16.0); LYMPHOCYTES # (AUTO) 0.4 K/uL (2.5-16.5); LYMPHOCYTES % (AUTO) 5.8 % (20.5-51.1); MEAN CORPUSCULAR HEMOGLOBIN 25 pg (27-31); MEAN CORPUSCULAR HGB CONC 33 g/dL (33-37); MEAN CORPUSCULAR VOLUME 76.2 fL (80-94); MONOCYTES # (AUTO) 0.6 K/uL (0.8-1.0); MONOCYTES % (AUTO) 8.2 % (1.7-9.3); NEUTROPHILS # (AUTO) 6.5 K/uL (1.8-7.7); PLATELET COUNT (AUTO) 307 K/uL (140-450); RED BLOOD CELL COUNT(AUTO) 5.09 MIL/uL (4.20-5.40); RED CELL DISTRIBUTION WIDTH 16.6 % (11.6-13.7); WHITE BLOOD COUNT (AUTO) 7.5 K/uL (4.8-10.8)
[2023-03-10 06:51] LABS: ALANINE AMINOTRANSFERASE 19 U/L (12-78); ALKALINE PHOSPHATASE 84 U/L (50-136); ANION GAP 8.6 (8-16); ASPARTATE AMINOTRANSFERASE 20 U/L (15-37); CALCIUM 8.7 mg/dL (8.5-10.1); CARBON DIOXIDE 35.1 mmol/L (21-32); CHLORIDE 97 mmol/L (98-107); CREATININE 0.8 mg/dL (0.6-1.3); GLUCOSE 102 mg/dL (74-106); POTASSIUM 3.7 mmol/L (3.5-5.1); SODIUM SERUM 137 mmol/L (136-145); TOTAL BILIRUBIN 0.7 mg/dL (0.0-1.0); TOTAL PROTEIN, SERUM 6.6 g/dL (6.4-8.2); UREA NITROGEN, BLOOD 18 mg/dL (7-18)
[2023-03-10] MEDS: FLUCONAZOLE 100 MG TAB PO SCH (08:38)
[2023-03-10] MEDS: POLYETHYLENE GLYCOL 17 GM/PKT PO SCH (08:38)
[2023-03-10] MEDS: lisinopriL 20 MG TAB PO SCH ×2 (08:39→20:53)
[2023-03-10] MEDS: DOCUSATE SODIUM 100 MG GELCAP PO SCH ×2 (08:39→20:53)
[2023-03-10] MEDS: DEXAMETHASONE 10 MG/ML VIAL IVP SCH (08:40)
[2023-03-10] MEDS: SPIRONOLACTONE 25 MG TAB PO SCH ×2 (08:40→20:52)
[2023-03-10] MEDS: FUROSEMIDE 40 MG TAB PO SCH (08:40)
[2023-03-10] MEDS: APIXABAN 2.5 MG TAB PO SCH ×2 (08:42→20:53)
[2023-03-10] MEDS: METOPROLOL 50 MG TAB PO SCH ×2 (09:10→20:53)
[2023-03-11] VITALS: BP 133/84; PULSE 63; PULSE 72; RESP 15; TEMP 97.8; O2SAT 93
[2023-03-11 04:00] VITALS: BP 124/83; PULSE 78; RESP 15; TEMP 97; O2SAT 93
[2023-03-11 04:05] VITALS: PULSE 81
[2023-03-11 06:49] LABS: HEMATOCRIT 37.6 % (36-48); HEMOGLOBIN 12.5 g/dL (12.0-16.0); LYMPHOCYTES # (AUTO) 0.5 K/uL (2.5-16.5); LYMPHOCYTES % (AUTO) 6.9 % (20.5-51.1); MEAN CORPUSCULAR HEMOGLOBIN 25 pg (27-31); MEAN CORPUSCULAR HGB CONC 33 g/dL (33-37); MEAN CORPUSCULAR VOLUME 76.1 fL (80-94); MONOCYTES # (AUTO) 0.7 K/uL (0.8-1.0); NEUTROPHILS # (AUTO) 6.2 K/uL (1.8-7.7); NEUTROPHILS % (AUTO) 83.1 % (42.2-75.2); PLATELET COUNT (AUTO) 284 K/uL (140-450); RED BLOOD CELL COUNT(AUTO) 4.95 MIL/uL (4.20-5.40); RED CELL DISTRIBUTION WIDTH 16.4 % (11.6-13.7); WHITE BLOOD COUNT (AUTO) 7.4 K/uL (4.8-10.8)
[2023-03-11 07:22] LABS: ANION GAP 8.5 (8-16); CALCIUM 9.1 mg/dL (8.5-10.1); CHLORIDE 99 mmol/L (98-107); CREATININE 0.7 mg/dL (0.6-1.3); GLUCOSE 139 mg/dL (74-106); POTASSIUM 4.5 mmol/L (3.5-5.1); SODIUM SERUM 136 mmol/L (136-145); UREA NITROGEN, BLOOD 26 mg/dL (7-18)
[2023-03-11 07:45] VITALS: O2SAT 88
[2023-03-11 07:50] VITALS: O2SAT 96
[2023-03-11 08:00] VITALS: BP 135/82; PULSE 104; PULSE 59; PULSE 81; RESP 15; RESP 22; TEMP 97.4; TEMP 98.7; O2SAT 99
[2023-03-11] MEDS: DEXAMETHASONE 10 MG/ML VIAL IVP SCH (09:18)
[2023-03-11] MEDS: POLYETHYLENE GLYCOL 17 GM/PKT PO SCH (09:18)
[2023-03-11] MEDS: SPIRONOLACTONE 25 MG TAB PO SCH (09:18)
[2023-03-11] MEDS: DOCUSATE SODIUM 100 MG GELCAP PO SCH (09:19)
[2023-03-11] MEDS: FLUCONAZOLE 100 MG TAB PO SCH (09:19)
[2023-03-11] MEDS: METOPROLOL 50 MG TAB PO SCH (09:20)
[2023-03-11] MEDS: lisinopriL 20 MG TAB PO SCH (09:20)
[2023-03-11] MEDS: FUROSEMIDE 40 MG TAB PO SCH (09:20)
[2023-03-11] MEDS ORDERED: APIX5TAB PO (10:43)
[2023-03-11] MEDS ORDERED: LISI20TA29 PO (10:43)
[2023-03-11] MEDS ORDERED: DOCU-299 PO (10:43)
[2023-03-11] MEDS ORDERED: METO50TA99 PO (10:43)
[2023-03-11] MEDS ORDERED: SPIR25TA PO (10:43)
[2023-03-11] MEDS ORDERED: DIPH25SG5 PO (10:43)
[2023-03-11] MEDS ORDERED: METOPROLOL SUCCINATE 50 MG TABER PO SCH (21:00)
[2023-03-11] MEDS ORDERED: APIXABAN 2.5 MG TAB PO SCH (21:00)
== END 2023-03-11 18:00 | disposition home health service (06) | DRG 871 ==
LOC: MED 15:02 → MMU 19:50 → MTU 19:54 → MIC 03-05 10:45 → MTU 03-07 02:34
PROVIDERS: ADMIT Internal Medicine; ATTEND Internal Medicine
PROC: XW033E5 Introduction of Remdesivir Anti-infective into Peripheral Vein, Percutaneous Approach, New Technology Group 5 (ICD-10-PCS; principal; 2023-03-06)
DX: A41.9 Sepsis, unspecified organism (principal); J12.82 Pneumonia due to coronavirus disease 2019; U07.1 COVID-19; J96.00 Acute respiratory failure, unspecified whether with hypoxia or hypercapnia; I48.20 Chronic atrial fibrillation, unspecified; I50.22 Chronic systolic (congestive) heart failure; E87.1 Hypo-osmolality and hyponatremia; I42.9 Cardiomyopathy, unspecified; B37.49 Other urogenital candidiasis; D64.9 Anemia, unspecified; I27.20 Pulmonary hypertension, unspecified; I11.0 Hypertensive heart disease with heart failure; R53.81 Other malaise; E88.09 Other disorders of plasma-protein metabolism, not elsewhere classified; D72.819 Decreased white blood cell count, unspecified; I35.0 Nonrheumatic aortic (valve) stenosis; Z79.01 Long term (current) use of anticoagulants; Z68.39 Body mass index [BMI] 39.0-39.9, adult
CPT/HCPCS: 36415; 71045; 71275; 73610; 80048; 80053; 80076; 80305; 81001; 82728; 83605; 83690; 83735; 83880; 84100; 84443; 84484; 85025; 85379; 85610; 85651; 85730; 86140; 87040; 87081; 87086; 87635-QW; 93005; 93971; 94640; 94660; 96361; 96365; 96375; 97110; 97112; 97163-GP; 97530; 99285; J0282; J0295; J1100; J1160; J1956; J2270; J3490; J7060; J7613; Q0092; Q0163; Q9967